=== PATIENT | male | born 1980 | race Caucasian/White ===

== ENCOUNTER 2022-09-01 17:42 | Inpatient (IN) | payer BC, OTHER ==
[2022-09-01] MEDS ORDERED: LORazepam 2 MG/ML INJ IV STA (17:54)
[2022-09-01] MEDS ORDERED: SODIUM CHLORIDE 0.9% 1,000 ML IV STA ×2 (17:54)
--- NOTE | 2022-09-01 17:55 | ED ---
Seizure HPI - General Chief Complaint: Seizure Stated Complaint: seizure Time Seen by Provider: 09/01/22 17:54 Source: patient, EMS, RN notes reviewed, old records reviewed Mode of arrival: EMS Limitations: no limitations - History of Present Illness Initial Comments: This is a 42-year-old male DF for evaluation. Patient has seizure around 2 minutes today prior to arrival. Patient going through alcohol withdrawal. Patient presents from [facility] for evaluation of alcohol withdrawal. Patient is currently going through active alcohol withdrawal here in the emergency department. Complaint: seizure -: minutes(s) Description of Episode: loss of consciousness, tonic-clonic movement -: minutes(s) Witnessed: yes - by bystander, yes - by EMS Trauma: Yes Seizure History: history of withdrawal seizures Place: home Possible Precipitating Event: none Associated Symptoms: denies other symptoms Treatments Prior to Arrival: none - Related Data Allergies Allergy/AdvReac Type Severity Reaction Status Date / Time tetanus and diphtheria Allergy Swelling Verified 09/01/22 17:54 toxoids Review of Systems ROS Statement: Those systems with pertinent positive or pertinent negative responses have been documented in the HPI. ROS Other: All systems not noted in ROS Statement are negative. General Exam Limitations: no limitations General appearance: alert, in no apparent distress Head exam: Present: atraumatic, normocephalic, normal inspection Eye exam: Present: normal appearance, PERRL, EOMI. Absent: scleral icterus, conjunctival injection, periorbital swelling ENT exam: Present: normal exam, mucous membranes moist Neck exam: Present: normal inspection. Absent: tenderness, meningismus, lymphadenopathy Respiratory exam: Present: normal lung sounds bilaterally. Absent: respiratory distress, wheezes, rales, rhonchi, stridor Cardiovascular Exam: Present: regular rate, normal rhythm, normal heart sounds. Absent: systolic murmur, diastolic murmur, rubs, gallop, clicks GI/Abdominal exam: Present: soft, normal bowel sounds. Absent: distended, tenderness, guarding, rebound, rigid Extremities exam: Present: normal inspection, full ROM, normal capillary refill. Absent: tenderness, pedal edema, joint swelling, calf tenderness Back exam: Present: normal inspection Neurological exam: Present: alert, oriented X3, CN II-XII intact Psychiatric exam: Present: normal affect, normal mood Skin exam: Present: warm, dry, intact, normal color. Absent: rash Course Vital Signs 09/01/22 17:45 Temperature 98.0 F Pulse Rate 80 Respiratory 16 Rate Blood Pressure 122/91 O2 Sat by Pulse 98 Oximetry - Reevaluation(s) Reevaluation #1: 09/01/22 18:36 Medical record is reviewed Reevaluation #2: 09/01/22 18:37 Patient has no recurrent seizure here in the ER Reevaluation #3: 09/01/22 19:12 Patient informed results questions answered Reevaluation #4: 09/01/22 18:37 Was pt. sent in by a medical professional or institution? @ -[facility] Did you speak to anyone other than the patient for history? @ -[facility] Did you review nursing and triage notes? @ gree] Were old charts reviewed? @ -prior ED visits Differential Diagnosis? @ -sz, abuse, alcohol EKG interpreted by me (3pts min.)? @ -yes X-rays interpreted by me (1pt min.)? @ -no CT interpreted by me (1pt min.)? @ -no U/S interpreted by me (1pt. min.)? @ -no What testing was considered but not performed? (CT, X-rays, U/S, labs)? Why? @ no What meds were considered but not given? Why? @ -no Did you discuss the management of the patient with other professionals? @ -no Did you reconcile home meds? @ -no Was smoking cessation discussed for >3mins.? @ -no Was critical care preformed (if so, how long)? @ -no Were there social determinants of health that impacted care today? How? (Homelessness, low income, unemployed, alcoholism, drug addiction, transportation, low edu. Level, literacy, decrease access to med. care, snf, rehab)? @ -no Was there de-escalation of care discussed even if they declined? (Discuss DNR or withdrawal of care, Hospice)? @ -no What co-morbidities impacted this encounter? (DM, HTN, Smoking, COPD, CAD, Cancer, CVA, Hep., AIDS, mental health diagnosis, sleep apnea, morbid obesity)? @ -no Was patient admitted / discharged? @ -admit Undiagnosed new problem with uncertain prognosis? @ -no Drug Therapy requiring intensive monitoring for toxicity (Heparin, Nitro, Insulin, Cardizem)? @ -no Were any procedures done? @ -no Diagnosis/symptom? @ -no Acute, or Chronic, or Acute on Chronic? @ -no Uncomplicated (without systemic symptoms) or Complicated (systemic symptoms)? @ -no Side effects of treatment? @ -no Exacerbation, Progression, or Severe Exacerbation] @ -no Poses a threat to life or bodily function? @ -yes Reevaluation #5: 09/01/22 18:39 Differential Seizure: Recurrent seizure disorder, febrile seizure, alcohol withdrawal, stimulants, meningitis, encephalitis, intercranial hemorrhage, intracranial tumor, stroke, eclampsia, thyrotoxicosis, hypocalcemia, hyponatremia, hypernatremia, hypomagnesemia, psychogenic, this is not meant to be an all-inclusive list. - Consultations Consultation #1: Spoke with [facility] for admission there agreed Medical Decision Making - Medical Decision Making 42 male to the emergency department for evaluation of seizure alcohol withdrawal seizure. CT is negative lab values are markedly abnormal. Patient also has pancreatitis patient be admitted for further evaluation of the above continued monitoring for seizure - Lab Data Result diagrams: 09/01/22 18:30 09/01/22 18:30 Lab Results 09/01/22 09/01/22 09/01/22 Range/Units 18:30 18:30 18:30 WBC 6.0 (3.8-10.6) k/uL RBC 4.14 L (4.30-5.90) m/uL Hgb 12.6 L (13.0-17.5) gm/dL Hct 38.5 L (39.0-53.0) % MCV 92.8 (80.0-100.0) fL MCH 30.4 (25.0-35.0) pg MCHC 32.8 (31.0-37.0) g/dL RDW 17.2 H (11.5-15.5) % Plt Count 479 H (150-450) k/uL MPV 8.2 Neutrophils % 66 % Lymphocytes % 14 % Monocytes % 15 % Eosinophils % 1 % Basophils % 1 % Neutrophils # 3.9 (1.3-7.7) k/uL Lymphocytes # 0.8 L (1.0-4.8) k/uL Monocytes # 0.9 (0-1.0) k/uL Eosinophils # 0.0 (0-0.7) k/uL Basophils # 0.0 (0-0.2) k/uL Anisocytosis Slight PT 11.3 (9.0-12.0) sec INR 1.1 (<1.2) Sodium 136 L (137-145) mmol/L Potassium 4.4 (3.5-5.1) mmol/L Chloride 98 (98-107) mmol/L Carbon Dioxide 28 (22-30) mmol/L Anion Gap 10 mmol/L BUN 12 (9-20) mg/dL Creatinine 0.53 L (0.66-1.25) mg/dL Est GFR (CKD-EPI)AfAm >90 (>60 ml/min/1.73 sqM) Est GFR (CKD-EPI)NonAf >90 (>60 ml/min/1.73 sqM) Glucose 127 H (74-99) mg/dL Calcium 9.8 (8.4-10.2) mg/dL Phosphorus 3.1 (2.5-4.5) mg/dL Magnesium 1.9 (1.6-2.3) mg/dL Total Bilirubin 2.1 H (0.2-1.3) mg/dL AST 449 H (17-59) U/L ALT 264 H (4-49) U/L Alkaline Phosphatase 201 H (38-126) U/L Total Protein 7.3 (6.3-8.2) g/dL Albumin 4.4 (3.5-5.0) g/dL Lipase 633 H (23-300) U/L Serum Alcohol <10 mg/dL - EKG Data -: EKG Interpreted by Me (EKG shows 79 NM 171 QRS 112 QTc 416) - Radiology Data Radiology results: report reviewed (CT brain negative for acute disease), image reviewed Disposition Clinical Impression: New onset seizure, Generalized seizure, Withdrawal seizures, Alcohol abuse, Alcohol withdrawal, Pancreatitis, Transaminitis Disposition: ADMITTED IP TO THIS [facility] Instructions (If sedation given, give patient instructions): Seizure/Epilepsy Discharge Instructions & Follow-Up Is patient prescribed a controlled substance at d/c from ED?: No Referrals: None,Stated [Primary Care Provider] - 1-2 days Time of Disposition: 19:20
[2022-09-01] MEDS ORDERED: levETIRAcetam IV 1,000 MG in SALINE 1 100ML.BAG IVPB STA (17:59)
[2022-09-01 18:48] LABS: Anisocytosis Slight; Basophils % (A) 1 %; Eosinophils % (A) 1 %; HCT 38.5 % (39.0-53.0); HGB 12.6 gm/dL (13.0-17.5); Lymphocytes # (A) 0.8 k/uL (1.0-4.8); Lymphocytes % (A) 14 %; MCH 30.4 pg (25.0-35.0); MCHC 32.8 g/dL (31.0-37.0); MCV 92.8 fL (80.0-100.0); Mean Platelet Volume 8.2; Monocytes # (A) 0.9 k/uL (0-1.0); Monocytes % (A) 15 %; Neutrophils # (A) 3.9 k/uL (1.3-7.7); Neutrophils % (A) 66 %; Platelet Count 479 k/uL (150-450); RBC 4.14 m/uL (4.30-5.90); RDW 17.2 % (11.5-15.5)
[2022-09-01 18:54] LABS: INR 1.1 (<1.2); Prothrombin Time 11.3 sec (9.0-12.0)
[2022-09-01 18:58] LABS: ALT 264 U/L (4-49); AST 449 U/L (17-59); African American GFR (CKD) >90 (>60 ml/min/1.73 sqM); Albumin 4.4 g/dL (3.5-5.0); Alcohol <10 mg/dL; Alkaline Phosphatase 201 U/L (38-126); Anion Gap 10 mmol/L; Blood Urea Nitrogen 12 mg/dL (9-20); Calcium 9.8 mg/dL (8.4-10.2); Carbon Dioxide 28 mmol/L (22-30); Chloride 98 mmol/L (98-107); Glucose 127 mg/dL (74-99); Lipase 633 U/L (23-300); Magnesium 1.9 mg/dL (1.6-2.3); Non-African American GFR(CKD) >90 (>60 ml/min/1.73 sqM); Phosphorus 3.1 mg/dL (2.5-4.5); Potassium 4.4 mmol/L (3.5-5.1); Sodium 136 mmol/L (137-145); Total Bilirubin 2.1 mg/dL (0.2-1.3); Total Protein 7.3 g/dL (6.3-8.2)
[2022-09-01] MEDS ORDERED: ONDANSETRON 4 MG/2 ML VIAL IVP PRN (19:13)
[2022-09-01] MEDS ORDERED: LORazepam 2 MG/ML INJ IV PRN ×3 (19:13)
[2022-09-01] MEDS ORDERED: NALOXONE 0.4 MG/ML 1 ML VIAL IV PRN (19:13)
--- NOTE | 2022-09-01 19:24 | CT ---
EXAMINATION TYPE: CT brain wo con CT DLP: 1143.4 mGycm, Automated exposure control for dose reduction was used. DATE OF EXAM: 09/01/2022 7:11 PM COMPARISON: None. CLINICAL INDICATION:Male, 42 years old with history of sz, seizure TECHNIQUE: Brain: Axial CT images of the brain were obtained with coronal and sagittal reformats created and rev iewed. Contrast used: None. Oral contrast used: None. FINDINGS: Brain: Extra-axial spaces: No abnormal extra-axial fluid collections. Ventricular system: Within normal limits Cerebral parenchyma: No acute intraparenchymal hemorrhage or mass effect. The anna-white junction is well differentiated. Cerebellum: Unremarkable. Mass effect: No evidence of midline shift. Intracranial vasculature: unremarkable Soft tissues: Normal. Calvarium/osseous structures: No depressed skull fracture. Paranasal sinuses and mastoid air cells: Clear. Mastoid air cells are Clear Visualized orbits: Orbital contents are intact. IMPRESSION: No acute intracranial process.
[2022-09-02] MEDS: levETIRAcetam IV 1,000 MG in SALINE 1 100ML.BAG IVPB SCH ×2 (06:15→17:55)
[2022-09-02] MEDS: THIAMINE 100 MG TAB PO SCH (09:40)
[2022-09-02] MEDS: FOLIC ACID 1 MG TAB PO SCH (09:40)
[2022-09-02] MEDS: MULTIVITAMINS, THERA 1 EACH TAB PO SCH (09:40)
[2022-09-02 10:46] LABS: Basophils # (A) 0.12 X 10*3/uL (0.00-0.10); Eosinophils # (A) 0.12 X 10*3/uL (0.04-0.35); HGB 10.8 g/dL (13.0-17.0); Immature Grans, Automated 0.2 %; Lymphocytes # (A) 1.34 X 10*3/uL (0.90-5.00); Lymphocytes % (A) 21.9 %; MCH 30.3 pg (27.0-32.0); MCHC 33.8 g/dL (32.0-37.0); MCV 89.9 fL (80.0-97.0); Mean Platelet Volume 10.6 fL (9.5-12.2); Monocytes # (A) 1.46 X 10*3/uL (0.20-1.00); Monocytes % (A) 23.8 %; NRBC Per 100 WBC 0 /100 WBCS (0.0-0.0); Neutrophils # (A) 3.08 X 10*3/uL (1.80-7.70); Neutrophils % (A) 50.1 %; Platelet Count 516 X 10*3/uL (140-440); RBC 3.56 X 10*6/uL (4.40-5.60); RDW 19.5 % (11.5-14.5); WBC 6.13 X 10*3/uL (4.50-10.00)
[2022-09-02 10:54] LABS: African American GFR (CKD) 145.8 (60.0-200.0); Albumin 3.8 g/dL (3.8-4.9); Albumin/Globulin Ratio 1.73 (1.60-3.17); Anion Gap 9.2 mmol/L (10.00-18.00); BUN/Creat Ratio 13.17 Ratio (12.00-20.00); Blood Urea Nitrogen 7.9 mg/dL (9.0-27.0); Calcium 9.6 mg/dL (8.7-10.3); Carbon Dioxide 25.8 mmol/L (20.0-27.5); Globulin 2.2 g/dL (1.6-3.3); Non-African American GFR(CKD) 125.8 (60.0-200.0); Phosphorus 3.5 mg/dL (2.4-5.1); Potassium 4.2 mmol/L (3.5-5.5); Total Bilirubin 1.7 mg/dL (0.30-1.20)
--- NOTE | 2022-09-02 13:36 | P.HPIM ---
History of Present Illness 42-year-old male admitted for seizures. Patient had a tonic-clonic activity as per the patient patient lost consciousness. Patient had all call withdrawal seizures in the past and patient is on Keppra. Patient has not been drinking for about a week patient has been in the rehabilitation place and was on Ativan which was discontinued yesterday. Patient denied any bowel or bladder incontinence patient doesn't have any and anion gap metabolic acidosis which means patient probably doesn't have an lactic is doses. Keppra levels will be obtained. Patient is presently not having any withdrawals. REVIEW OF SYSTEMS: CONSTITUTIONAL: No fever, no malaise, no fatigue. HEENT: No recent visual problems or hearing problems. Denied any sore throat. CARDIOVASCULAR: No chest pain, orthopnea, PND, no palpitations, no syncope. PULMONARY: No shortness of breath, no cough, no hemoptysis. GASTROINTESTINAL: No diarrhea, no nausea, no vomiting, no abdominal pain. NEUROLOGICAL: No headaches, no weakness, no numbness. HEMATOLOGICAL: Denies any bleeding or petechiae. GENITOURINARY: Denies any burning micturition, frequency, or urgency. MUSCULOSKELETAL/RHEUMATOLOGICAL: Denies any joint pain, swelling, or any muscle pain. ENDOCRINE: Denies any polyuria or polydipsia. The rest of the 14-point review of systems is negative. PHYSICAL EXAMINATION: GENERAL: The patient is alert and oriented x3, not in any acute distress. Well developed, well nourished. HEENT: Pupils are round and equally reacting to light. EOMI. No scleral icterus. No conjunctival pallor. Normocephalic, atraumatic. No pharyngeal erythema. No thyromegaly. CARDIOVASCULAR: S1 and S2 present. No murmurs, rubs, or gallops. PULMONARY: Chest is clear to auscultation, no wheezing or crackles. ABDOMEN: Soft, nontender, nondistended, normoactive bowel sounds. No palpable organomegaly. MUSCULOSKELETAL: No joint swelling or deformity. EXTREMITIES: No cyanosis, clubbing, or pedal edema. NEUROLOGICAL: Gross neurological examination did not reveal any focal deficits. SKIN: No rashes. Assessment and plan -Possible seizures: Neurology eval will evaluated the patient is unusual for patient to have withdrawals after a week of cessation of alcohol. Patient doesn't have lactic acidosis either patient will be resumed on Keppra will obtain Keppra levels and neurology will evaluate the patient if cleared by neurology patient probably will be discharged later today on a short taper of Librium -All call withdraws -All call abuse: Counseling was provided -Elevated liver enzymes secondary to acute on chronic alcoholic hepatitis -Depression DVT prophylaxis: Ambulation Past Medical History Past Medical History: Cancer, Seizure Disorder History of Any Multi-Drug Resistant Organisms: None Reported Past Surgical History: No Surgical Hx Reported Past Anesthesia/Blood Transfusion Reactions: No Reported Reaction Smoking Status: Never smoker - Past Family History Father Family Medical History: No Reported History Medications and Allergies Home Medications Medication Instructions Recorded Confirmed Type Acetaminophen [Tylenol 8 Hour] 650 mg PO Q4H PRN 09/01/22 09/01/22 History Atomoxetine HCl [Strattera] 40 mg PO DAILY 09/01/22 09/01/22 History Brexpiprazole [Rexulti] 1 mg PO DAILY 09/01/22 09/01/22 History Calcium, Magnesium, Zinc, With 1 tab PO TID PRN 09/01/22 09/01/22 History Vitamin D3 Chlorpheniramine Maleate 4 mg PO Q4H PRN 09/01/22 09/01/22 History [Chlor-Trimeton] Citalopram Hydrobromide 20 mg PO DAILY 09/01/22 09/01/22 History [Citalopram HBr] Docusate [Colace] 100 mg PO BID PRN 09/01/22 09/01/22 History Ibuprofen [Motrin Ib] 600 mg PO Q6H PRN 09/01/22 09/01/22 History LORazepam [Ativan] See Taper PO DIRECTED 09/01/22 09/01/22 History Levsin (Unknown Strength) 1 dose PO QID PRN 09/01/22 09/01/22 History Loperamide HCl [Imodium A-D] 4 mg PO QID PRN 09/01/22 09/01/22 History Mag Hydrox/Aluminum Hyd/Simeth 30 ml PO Q4H PRN 09/01/22 09/01/22 History [Mylanta Maximum Strength Liq] Multivitamins, Thera [Multivitamin 1 tab PO DAILY 09/01/22 09/01/22 History (formulary)] Thiamine [Vitamin B-1] 100 mg PO DAILY 09/01/22 09/01/22 History cloNIDine HCL [Catapres] 0.1 - 0.3 mg PO Q4H PRN 09/01/22 09/01/22 History guaiFENesin [guaiFENesin Oral 200 mg PO Q4H PRN 09/01/22 09/01/22 History Solution] levETIRAcetam [Keppra] 500 mg PO Q12HR 09/01/22 09/01/22 History ondansetron HCL [Ondansetron HCl] 8 mg PO Q6H PRN 09/01/22 09/01/22 History traZODone HCL 300 mg PO HS 09/01/22 09/01/22 History Allergies Allergy/AdvReac Type Severity Reaction Status Date / Time tetanus and diphtheria Allergy Swelling Verified 09/01/22 20:22 toxoids Physical Exam Vitals: Vital Signs Temp Pulse Pulse Resp BP BP Pulse Ox 09/02/22 08:12 98.0 F 71 18 123/83 98 09/02/22 07:59 80 18 116/79 97 09/02/22 07:40 18 09/02/22 07:00 97.6 F 87 18 115/80 98 09/02/22 06:00 81 16 110/77 98 09/02/22 05:00 60 16 108/71 98 09/02/22 04:00 65 16 113/83 59 L 09/02/22 03:00 59 L 16 123/92 98 09/02/22 02:00 58 L 16 106/74 98 09/02/22 01:00 64 16 107/77 98 09/02/22 00:00 69 16 124/95 98 09/01/22 23:58 59 L 16 102/74 98 09/01/22 23:00 75 16 118/84 99 09/01/22 22:38 76 118/84 09/01/22 22:30 79 120/94 09/01/22 22:00 87 127/105 09/01/22 21:30 78 99/89 09/01/22 21:00 79 120/84 09/01/22 20:30 66 120/91 09/01/22 20:00 64 139/100 09/01/22 19:00 61 122/91 09/01/22 17:45 98.0 F 80 16 122/91 98 Intake and Output 09/01/22 09/02/22 09/02/22 22:59 06:59 14:59 Other: Weight 79.379 kg 79.379 kg Results CBC & Chem 7: 09/02/22 07:10 09/02/22 07:10 Labs: Abnormal Lab Results - Last 24 Hours (Table) 09/01/22 09/01/22 09/02/22 Range/Units 18:30 18:30 07:10 RBC 4.14 L 3.56 L (4.30-5.90) m/uL Hgb 12.6 L 10.8 L (13.0-17.5) gm/dL Hct 38.5 L 32.0 L (39.0-53.0) % RDW 17.2 H 19.5 H (11.5-15.5) % Plt Count 479 H 516 H (150-450) k/uL Lymphocytes # 0.8 L (1.0-4.8) k/uL Monocytes # 1.46 H (0.20-1.00) X 10*3/uL Basophils # 0.12 H (0.00-0.10) X 10*3/uL Sodium 136 L (137-145) mmol/L Anion Gap (10.00-18.00) mmol/L BUN (9.0-27.0) mg/dL Creatinine 0.53 L (0.66-1.25) mg/dL Glucose 127 H (74-99) mg/dL Total Bilirubin 2.1 H (0.2-1.3) mg/dL AST 449 H (17-59) U/L ALT 264 H (4-49) U/L Alkaline Phosphatase 201 H (38-126) U/L Total Protein (6.2-8.2) g/dL Lipase 633 H (23-300) U/L 09/02/22 Range/Units 07:10 RBC (4.30-5.90) m/uL Hgb (13.0-17.5) gm/dL Hct (39.0-53.0) % RDW (11.5-15.5) % Plt Count (150-450) k/uL Lymphocytes # (1.0-4.8) k/uL Monocytes # (0.20-1.00) X 10*3/uL Basophils # (0.00-0.10) X 10*3/uL Sodium (137-145) mmol/L Anion Gap 9.20 L (10.00-18.00) mmol/L BUN 7.9 L (9.0-27.0) mg/dL Creatinine (0.66-1.25) mg/dL Glucose (74-99) mg/dL Total Bilirubin 1.70 H (0.2-1.3) mg/dL AST 295 H (17-59) U/L ALT 225 H (4-49) U/L Alkaline Phosphatase 180 H (38-126) U/L Total Protein 6.0 L (6.2-8.2) g/dL Lipase (23-300) U/L Thrombosis Risk Factor Assmnt - Choose All That Apply Any of the Below Risk Factors Present?: No
[2022-09-02] MEDS ORDERED: levETIRAcetam 500 MG TAB PO SCH (14:00)
[2022-09-02] MEDS ORDERED: traZODone HCL 100 MG TAB PO SCH (21:00)
[2022-09-03] MEDS: levETIRAcetam IV 1,000 MG in SALINE 1 100ML.BAG IVPB SCH (06:33)
[2022-09-03 07:48] VITALS: BP 100/61; PULSE 79; RESP 18; TEMP 97.5
[2022-09-03] MEDS ORDERED: CITALOPRAM HYDROBROMIDE 20 MG TAB PO SCH (09:00)
[2022-09-03] MEDS ORDERED: NON FORMULARY DRUG (Atomoxetine Hcl [Strattera] 40 MG Capsule) PO SCH (09:00)
[2022-09-03] MEDS ORDERED: THIAMINE 100 MG TAB PO SCH (09:00)
[2022-09-03] MEDS ORDERED: NON FORMULARY DRUG (Brexpiprazole [Rexulti] 1 MG Tablet) PO SCH (09:00)
[2022-09-03] MEDS: MULTIVITAMINS, THERA 1 EACH TAB PO SCH (09:59)
[2022-09-03] MEDS: THIAMINE 100 MG TAB PO SCH (09:59)
[2022-09-03] MEDS: FOLIC ACID 1 MG TAB PO SCH (09:59)
--- NOTE | 2022-09-03 10:29 | P.CNNES ---
History of Present Illness Consult date: 09/02/22 Requesting physician: Oseas Anderson Reason for Consult: Seizure History of Present Illness: Patient is a 42-year-old male with history of alcoholism, has been sober for 1 week came to the hospital by ambulance yesterday at 5:42 PM for a seizure. Patient states that he quit drinking alcohol 1 week ago, as the last drink was on on last 08/25/2022. He was admitted to [facility] for alcohol rehab on 08/26/2022. He was started on Ativan every 6 hours. Patient states that yesterday they abruptly stopped his Ativan yesterday, which probably resulted in the seizure. He remembers that he was just waiting for the dinner, looking out of the window when his body froze, he was about to fall. People in the facility caught him, and he was lowered down. He believes that he was out for about 2 minutes. He did not bite his tongue, did not lose control of urine. He was brought to the hospital. As per EMS flow sheet, when they arrived, patient was being wheelchaired out to the ambulance via staff. Per staff and bystander, patient began to seize, they caught him and eased him to the floor, no false no trauma. The seizure was full body convulsion lasting approximately 2 minutes. Patient was alert and oriented 4. However he was confused as to recent event of the seizure. Patient stated that he has had detox seizures in the past. Patient moved to the stretcher and ambulance. Patient was not incontinent. Monitor showing sinus tachycardia with blood glucose 185. Patient's blood pressure was 163/104, pulse rate 106, respirations 16, saturation 99%. EKG showed sinus rhythm CT head showed no acute intracranial process. Blood test shows normal CBC, PT/INR, sodium was 136, electrolytes are normal, renal functions are normal. AST was 449, ALT 264, which has come down to 2 9510-25 respectively. Lipase is elevated 633. Blood alcohol level < 10. Patient states he has been drinking alcohol since age 16, but alcoholism became an issue 5 years ago when he started drinking a fifth of vodka per day. He denies any tobacco use, or any drug use. He occasionally uses marijuana gummies. Patient states that he had history of seizure in July 2021, when he was incarcerated, and had a alcohol withdrawal seizure. He was in [facility] for 90 days. He had another seizure prior to that on January 2021, which was also alcohol related. He has been on Keppra 500 mg twice a day. He denies any family history of seizures. Patient's home medications include magnesium, ibuprofen, trazodone 300 mg at bedtime, Strattera 40 mg, Keppra 500 mg every 12 hours, Celexa 20 mg, climbing 100 mg, multivitamin, clonidine, Rexulti, Zofran and Levsin. Review of Systems Constitutional: Denies chills, Denies fever Eyes: denies blurred vision, denies pain Ears: deny: ear discharge, earache Ears, nose, mouth and throat: Denies headache, Denies sore throat Cardiovascular: Denies chest pain, Denies shortness of breath Respiratory: Denies cough, Denies excessive sputum Gastrointestinal: Denies abdominal pain, Denies diarrhea, Denies nausea, Denies vomiting Musculoskeletal: Denies frequent falls, Denies myalgias Integumentary: Denies pruritus, Denies rash Neurological: Reports as per HPI Endocrine: Denies fatigue, Denies weight change Past Medical History Past Medical History: Cancer, Seizure Disorder History of Any Multi-Drug Resistant Organisms: None Reported Past Surgical History: No Surgical Hx Reported Past Anesthesia/Blood Transfusion Reactions: No Reported Reaction Smoking Status: Never smoker - Past Family History Father Family Medical History: No Reported History Medications and Allergies Home Medications Medication Instructions Recorded Confirmed Type Acetaminophen [Tylenol 8 Hour] 650 mg PO Q4H PRN 09/01/22 09/01/22 History Atomoxetine HCl [Strattera] 40 mg PO DAILY 09/01/22 09/01/22 History Brexpiprazole [Rexulti] 1 mg PO DAILY 09/01/22 09/01/22 History Calcium, Magnesium, Zinc, With 1 tab PO TID PRN 09/01/22 09/01/22 History Vitamin D3 Citalopram Hydrobromide 20 mg PO DAILY 09/01/22 09/01/22 History [Citalopram HBr] Docusate [Colace] 100 mg PO BID PRN 09/01/22 09/01/22 History Ibuprofen [Motrin Ib] 600 mg PO Q6H PRN 09/01/22 09/01/22 History LORazepam [Ativan] See Taper PO DIRECTED 09/01/22 09/01/22 History Levsin (Unknown Strength) 1 dose PO QID PRN 09/01/22 09/01/22 History Loperamide HCl [Imodium A-D] 4 mg PO QID PRN 09/01/22 09/01/22 History Mag Hydrox/Aluminum Hyd/Simeth 30 ml PO Q4H PRN 09/01/22 09/01/22 History [Mylanta Maximum Strength Liq] Multivitamins, Thera [Multivitamin 1 tab PO DAILY 09/01/22 09/01/22 History (formulary)] Thiamine [Vitamin B-1] 100 mg PO DAILY 09/01/22 09/01/22 History guaiFENesin [guaiFENesin Oral 200 mg PO Q4H PRN 09/01/22 09/01/22 History Solution] levETIRAcetam [Keppra] 500 mg PO Q12HR 09/01/22 09/01/22 History ondansetron HCL [Zofran] 8 mg PO Q6H PRN 09/01/22 09/01/22 History traZODone HCL 300 mg PO HS 09/01/22 09/01/22 History Allergies Allergy/AdvReac Type Severity Reaction Status Date / Time tetanus and diphtheria Allergy Swelling Verified 09/01/22 20:22 toxoids Physical Examination - Vital Signs Vital Signs: Vital Signs Temp Pulse Pulse Resp BP BP Pulse Ox 09/02/22 14:00 99.3 F 69 19 126/86 95 09/02/22 08:12 98.0 F 71 18 123/83 98 09/02/22 07:59 80 18 116/79 97 09/02/22 07:40 18 09/02/22 07:00 97.6 F 87 18 115/80 98 09/02/22 06:00 81 16 110/77 98 09/02/22 05:00 60 16 108/71 98 09/02/22 04:00 65 16 113/83 59 L 09/02/22 03:00 59 L 16 123/92 98 09/02/22 02:00 58 L 16 106/74 98 09/02/22 01:00 64 16 107/77 98 09/02/22 00:00 69 16 124/95 98 09/01/22 23:58 59 L 16 102/74 98 09/01/22 23:00 75 16 118/84 99 09/01/22 22:38 76 118/84 09/01/22 22:30 79 120/94 09/01/22 22:00 87 127/105 09/01/22 21:30 78 99/89 09/01/22 21:00 79 120/84 09/01/22 20:30 66 120/91 09/01/22 20:00 64 139/100 09/01/22 19:00 61 122/91 09/01/22 17:45 98.0 F 80 16 122/91 98 Intake and Output 09/02/22 09/02/22 09/02/22 06:59 14:59 22:59 Other: Weight 79.379 kg Patient is a middle aged male, in no acute distress. Patient is alert awake oriented to time place and person. Speech and language functions are normal. Patient can name and repeat very well. No aphasia or dysarthria. Attention, concentration and fund of knowledge is adequate. On cranial nerve examination, pupils are equal, round and reacting to light, visual stephenson are full on confrontation, with no neglect on double simultaneous stimulation. Extraocular muscles are intact with no nystagmus. Face is symmetric, tongue protrudes to the midline. Palatal elevation and sensation normal, hearing and shoulder shrug normal, facial sensation normal. On muscle strength testing, there is no pronator drift and the strength is normal in arms and legs distally and proximally. Deep tendon reflexes are symmetric 2 at the biceps, 2 brachioradialis, 1+ at the knees, 1 at ankles and plantars are flat bilaterally. Sensory to touch is equal with no neglect on double simultaneous stimulation. Cerebellar function showed no ataxia for metqbq-lb-sjbu testing. No dysdiadochokinesia. No ataxia for aoth-wk-mgur testing on either side. Tone and bulk of muscles normal. Patient has fine tremors of outstretched hands. Gait deferred.. On general examination, there is no carotid bruit or murmur, S1-S2 audible. Chest is clear on consultation. Abdomen is soft nontender. No organomegaly, bowel sounds present. Peripheral pulses are present. No edema. Patient is sweating in the palms and feet. Results - Laboratory Findings CBC and BMP: 09/02/22 07:10 09/02/22 07:10 Abnormal Lab Findings: Abnormal Labs 09/01/22 09/01/22 09/02/22 18:30 18:30 07:10 RBC 4.14 L 3.56 L Hgb 12.6 L 10.8 L Hct 38.5 L 32.0 L RDW 17.2 H 19.5 H Plt Count 479 H 516 H Lymphocytes # 0.8 L Monocytes # 1.46 H Basophils # 0.12 H Sodium 136 L Anion Gap BUN Creatinine 0.53 L Glucose 127 H Total Bilirubin 2.1 H AST 449 H ALT 264 H Alkaline Phosphatase 201 H Total Protein Lipase 633 H 09/02/22 07:10 RBC Hgb Hct RDW Plt Count Lymphocytes # Monocytes # Basophils # Sodium Anion Gap 9.20 L BUN 7.9 L Creatinine Glucose Total Bilirubin 1.70 H AST 295 H ALT 225 H Alkaline Phosphatase 180 H Total Protein 6.0 L Lipase Assessment and Plan Assessment: * Seizure, likely due to alcohol withdrawal. Patient stopped drinking alcohol on 08/26/2022 and was getting Ativan, which was discontinued on the day of the seizure, likely resulting in withdrawal seizure. * History of alcoholism * Elevated liver enzymes, likely due to alcoholism. Plan: * Patient believes his seizure was likely due to withdrawing from alcohol/Ativan. We will continue same dose of Keppra 500 mg twice a day. He was given prescription of Keppra 500 mg twice a day #60 tablets with no refills. Patient states that he has made an appointment with a neurologist to follow up as an outpatient. He may benefit from outpatient EEG. * Watch for DTs. * Thiamine, folate, multivitamins. * Patient has elevated liver enzymes. Will defer to IM for any further testing if necessary. * Patient was clearly informed about [place] state law of no driving unless seizure free for 6 months, climbing ladders, operating dangerous machinery or unsupervised swimming. * Patient counseled about continuing abstinence from alcohol. * Neurologically clear for discharge. Discussed with patient's nurse and primary physician. * Thank you for the consult.
--- NOTE | 2022-09-03 21:03 | P.DS ---
Providers Date of admission: 09/01/22 19:13 Attending physician: Kieran Narayanan Consults: 09/02/22 15:03 Consult Physician Stat Consulting Provider: Jani Segovia Reason/Comments: seizure Do you want consulting provider notified?: Yes Primary care physician: Stated None Hospital Course: Final Diagnosis -Seizure likely alcohol withdrawal seizure/abrupt discontinuation of ativan -Acute alcohol withdrawal -Alcohol abuse: Counseling was provided -Elevated liver enzymes secondary to acute on chronic alcoholic hepatitis improving -Depression Full Code Discharge Disposition Patient is stable for discharge. Sent on oral librium taper for 5 days. Continued on same keppra dose. Patient has follow up appointments scheduled with his primary provider Dr. Wakefield and also his neurologist. Patient does not wish to return to [facility] rehab he has discharge plan in place. Patient has been informed of [place] law no driving unless seizure free for 6 months, no climbing ladders, operating dangerous machinery and no unsupervised swimming. Hospital Course This is a 42-year-old male admitted for seizures. Patient had a tonic-clonic activity as per the patient patient lost consciousness. He as at [facility] for alcohol withdrawal and treatment. He had been started on oral ativan every 6 hours when it was abruptly stopped. He than had witnessed seizure and was brought to the hospital by EMS for further evaluation. Patient has history of chronic alcohol abuse and alcohol withdrawal seizures in the past and patient is on Keppra. Patient has not had any alcohol for the last week. Patient denied any bowel or bladder incontinence patient doesn't have any anion gap metabolic acidosis which means patient probably doesn't have an lactic acidoses. Keppra levels are obtained and level is at 9. Patient is presently not having any withdrawals. He states seizure likely because he ran out of his ativan. He does not wish to return to [facility] on discharge. Discussed with patient he has family support and he is given 5 days of oral librium taper and recommended to see his neurologist on discharge. 09/03/2022 Patient evaluated today no further reports of seizure like activity. He denies any alcohol withdrawal symptoms. His LFTs are improving, this can be monitored outpatient. His vitals are stable, afebrile and on room air. He is alert x 3 and focal neurological exam is negative. He is cleared for discharge today. Please see medication reconciliation for a list of current medication. Thank you for allowing us to participate in the care of this patient. The impression and plan of care has been dictated by Zehra Lazo, Nurse Practitioner as directed. Dr. Justin MD I have performed a history and physical examination and medical decision making of this patient, discussed the same with the dictator, and agree with the dictators assessment and plan as written, documented as a scribe. Based on total visit time, I have performed more than 50% of this visit. Patient Condition at Discharge: Stable Plan - Discharge Summary Discharge Rx Participant: Yes New Discharge Prescriptions: New chlordiazePOXIDE HCl [Librium] 25 mg PO DIRECTED 6 Days #12 capsule Folic Acid 1 mg PO DAILY #30 tab Continue Mag Hydrox/Aluminum Hyd/Simeth [Mylanta Maximum Strength Liq] 30 ml PO Q4H PRN PRN Reason: Gi Upset Ibuprofen [Motrin Ib] 600 mg PO Q6H PRN PRN Reason: Pain Loperamide HCl [Imodium A-D] 4 mg PO QID PRN PRN Reason: Diarrhea Docusate [Colace] 100 mg PO BID PRN PRN Reason: Constipation traZODone HCL 300 mg PO HS Atomoxetine HCl [Strattera] 40 mg PO DAILY Citalopram Hydrobromide [Citalopram HBr] 20 mg PO DAILY Acetaminophen [Tylenol 8 Hour] 650 mg PO Q4H PRN PRN Reason: Pain Or Fever > 100.5 Thiamine [Vitamin B-1] 100 mg PO DAILY Multivitamins, Thera [Multivitamin (formulary)] 1 tab PO DAILY Levsin (Unknown Strength) 1 dose PO QID PRN PRN Reason: CRAMPING guaiFENesin [guaiFENesin Oral Solution] 200 mg PO Q4H PRN PRN Reason: Congestion Calcium, Magnesium, Zinc, With Vitamin D3 1 tab PO TID PRN PRN Reason: SUPPLEMENT Brexpiprazole [Rexulti] 1 mg PO DAILY ondansetron HCL [Zofran] 8 mg PO Q6H PRN PRN Reason: Nausea levETIRAcetam [Keppra] 500 mg PO Q12HR #60 tab Discontinued Chlorpheniramine Maleate [Chlor-Trimeton] 4 mg PO Q4H PRN PRN Reason: Allergy Symptoms cloNIDine HCL [Catapres] 0.1 - 0.3 mg PO Q4H PRN PRN Reason: BP >160/100 LORazepam [Ativan] See Taper PO DIRECTED Discharge Medication List Acetaminophen [Tylenol 8 Hour] 650 mg PO Q4H PRN 09/01/22 [History] Atomoxetine HCl [Strattera] 40 mg PO DAILY 09/01/22 [History] Brexpiprazole [Rexulti] 1 mg PO DAILY 09/01/22 [History] Calcium, Magnesium, Zinc, With Vitamin D3 1 tab PO TID PRN 09/01/22 [History] Citalopram Hydrobromide [Citalopram HBr] 20 mg PO DAILY 09/01/22 [History] Docusate [Colace] 100 mg PO BID PRN 09/01/22 [History] Ibuprofen [Motrin Ib] 600 mg PO Q6H PRN 09/01/22 [History] Levsin (Unknown Strength) 1 dose PO QID PRN 09/01/22 [History] Loperamide HCl [Imodium A-D] 4 mg PO QID PRN 09/01/22 [History] Mag Hydrox/Aluminum Hyd/Simeth [Mylanta Maximum Strength Liq] 30 ml PO Q4H PRN 09/01/22 [History] Multivitamins, Thera [Multivitamin (formulary)] 1 tab PO DAILY 09/01/22 [History] Thiamine [Vitamin B-1] 100 mg PO DAILY 09/01/22 [History] guaiFENesin [guaiFENesin Oral Solution] 200 mg PO Q4H PRN 09/01/22 [History] ondansetron HCL [Zofran] 8 mg PO Q6H PRN 09/01/22 [History] traZODone HCL 300 mg PO HS 09/01/22 [History] Folic Acid 1 mg PO DAILY #30 tab 09/03/22 [Rx] chlordiazePOXIDE HCl [Librium] 25 mg PO DIRECTED 6 Days #12 capsule 09/03/22 [Rx] levETIRAcetam [Keppra] 500 mg PO Q12HR #60 tab 09/03/22 [Rx] Follow up Appointment(s)/Referral(s): None,Stated [Primary Care Provider] - 1-2 days Patient Instructions/Handouts: Seizure/Epilepsy Discharge Instructions & Follow-Up Activity/Diet/Wound Care/Special Instructions: If patient wishes to return to [facility] at discharge they will take him back and provide transport at discharge: [phone] #4, #4. Keep same follow up appointment with your PCP and your neurologist Continue librium taper as prescribed Discharge Disposition: HOME SELF-CARE
== END 2022-09-03 12:57 | disposition home or self-care (01) | DRG 101 ==
LOC: EC 17:42 → 5NMEDONC 19:13 → 4SSUR 09-02 01:55
PROVIDERS: ADMIT Hospitalist; ATTEND Hospitalist
DX: G40.909 Epilepsy, unspecified, not intractable, without status epilepticus (principal); F10.139 Alcohol abuse with withdrawal, unspecified; K70.10 Alcoholic hepatitis without ascites; F32.A Depression, unspecified; R74.8 Abnormal levels of other serum enzymes; Z79.899 Other long term (current) drug therapy; Z71.41 Alcohol abuse counseling and surveillance of alcoholic; Z88.7 Allergy status to serum and vaccine
CPT/HCPCS: 36415; 70450; 80053; 80177; 80320; 83690; 83735; 84100; 85025; 85610; 93005; 96361; 96374; 96375; 96376; 99285